=== PATIENT | female | born 1995 | race Caucasian/White ===

== ENCOUNTER → 2023-06-13 | Day surgery (SDC) | payer MEDICAID, OTHER ==
[~2023-06-13] VITALS: Ht 167.6 cm; Wt 98.0 kg
[~2023-06-13] MED LIST: BACITRACIN 14GM TUBE TOP ONE; CEFAZOLIN SODIUM 1000MG/VIAL ONE; DEXAMETHASONE 4MG/ML 1ML VIAL ONE; FAMO-287 PO; FENTANYL CITRATE/PF 50MCG/ML 2ML VIAL IV PRN; FENTANYL CITRATE/PF 50MCG/ML 2ML VIAL ONE; HYDROCODONE/ACETAMINOPHEN 5/325MG TABLET PO NR; LACTATED RINGERS 1,000 ML IV SCH; LIDOCAINE HCL 1% 10 MG/ML 10ML VIAL ONE; METOCLOPRAMIDE HCL 10MG/2ML VIAL ONE; MIDAZOLAM HCL 2 MG/2 ML VIAL ONE; ONDANSETRON HCL 4MG/2ML INJ ONE; PROPOFOL 200MG/20ML VIAL IV ONE; VITAMIN D PO
[2023-06-13 06:51] LABS: UCG SCREEN NEGATIVE
[2023-06-13 09:29] VITALS: BP 122/76; PULSE 60; RESP 21
== END | disposition home or self-care (01) ==
LOC: OR 05:32
PROVIDERS: ATTEND Surgery
DX: K64.8 Other hemorrhoids (principal); Z79.899 Other long term (current) drug therapy; Z98.890 Other specified postprocedural states; Z88.8 Allergy status to other drugs, medicaments and biological substances
CPT/HCPCS: 46260; 81025; 88304; J3010; J0690; J1100; J3490; J2765; J2250; J2405; J2704